=== PATIENT | male | born 1945 | race Caucasian/White ===

== ENCOUNTER 2016-10-26 12:14 | Day surgery (SDC) | payer MEDICARE ==
[~2016-10-26] VITALS: Ht 127 cm; Wt 115.0 kg
[~2016-10-26 12:14] MED LIST: BUPIVACAINE/PF 0.5% ONE; HEPARIN 1,000 UNITS/ML, 10ML ONE; PROTAMINE SULFATE 10 MG/ML, 5ML ONE; THROMBIN 5,000 UNIT VIAL TP ONE
[2016-10-26] MEDS ORDERED: LIDOCAINE 1%, 2ML ONE (13:18)
[2016-10-26 13:22] VITALS: BP 136/71
[2016-10-26] MEDS ORDERED: VITA0.8T2 PO (13:31)
[2016-10-26] MEDS ORDERED: LOSA25TA5 PO (13:33)
[2016-10-26] MEDS ORDERED: FURO-92 PO (13:33)
[2016-10-26] MEDS ORDERED: WARF1TAB7 PO (13:33)
[2016-10-26] MEDS ORDERED: ERGO500017 PO (13:33)
[2016-10-26] MEDS ORDERED: POTA10TA12 PO (13:33)
[2016-10-26] MEDS ORDERED: CINN500C2 PO (13:33)
[2016-10-26] MEDS ORDERED: HYDR-3138 PO (13:33)
[2016-10-26] MEDS ORDERED: ASPI-496 PO (13:33)
[2016-10-26] MEDS ORDERED: SODIUM CHLORIDE 0.9% 1,000 ML IV SCH (13:35)
[2016-10-26] MEDS ORDERED: EPHEDRINE 50 MG/ML, 1ML IVPush PRN (14:00)
[2016-10-26] MEDS ORDERED: LABETALOL 5MG/ML, 20ML IV PRN (14:00)
[2016-10-26] MEDS ORDERED: FENTANYL PF 100 MCG/2ML IV PRN (14:00)
[2016-10-26] MEDS ORDERED: OXYcodone 5 MG/5 ML ORAL.SOL UDC PO PRN (14:00)
[2016-10-26] MEDS ORDERED: ONDANSETRON 2MG/ML, 2ML IVPush PRN (14:00)
[2016-10-26] MEDS ORDERED: HYDROmorphone 1 MG/ML, 1ML IV PRN (14:00)
[2016-10-26] MEDS ORDERED: hydrALAzine 20 MG/ML, 1ML IV PRN (14:00)
[2016-10-26] MEDS ORDERED: LIDOCAINE 1%, 2ML SQ PRN (14:00)
[2016-10-26] MEDS ORDERED: METOPROLOL 1 MG/ML, 5ML IV PRN (14:00)
[2016-10-26] MEDS ORDERED: ALBUTEROL SULFATE 2.5 MG/3 ML NPPB PRN (14:00)
[2016-10-26] MEDS ORDERED: ACETAMINOPHEN 325 MG TABLET PO PRN (14:00)
[2016-10-26] MEDS ORDERED: CEFAZOLIN 1,000 MG ONE (14:08)
[2016-10-26] MEDS ORDERED: GLYCOPYRROLATE 0.2MG/1ML ONE (14:08)
[2016-10-26] MEDS ORDERED: NEOSTIGMINE 1 MG/ML, 10ML ONE (14:08)
[2016-10-26] MEDS ORDERED: ONDANSETRON 2MG/ML, 2ML ONE (14:08)
[2016-10-26] MEDS ORDERED: PROPOFOL 10 MG/ML, 20ML ONE (14:08)
[2016-10-26] MEDS ORDERED: ATROPINE 0.4 MG/ML, 1ML ONE (14:08)
[2016-10-26] MEDS ORDERED: EPINEPHRINE 1 MG/ML, 1ML ONE (14:08)
[2016-10-26] MEDS ORDERED: ROCURONIUM 10 MG/ML ONE (14:08)
[2016-10-26] MEDS ORDERED: FENTANYL PF 100 MCG/2ML ONE (14:28)
[2016-10-26] MEDS ORDERED: OXYcodone 5 MG/5 ML ORAL.SOL UDC ONE (16:50)
== END 2016-10-26 18:25 | disposition home or self-care (01) ==
LOC: OUT 12:14
PROVIDERS: ATTEND Surgery Vascular Surgery
DX: T82.49XA Other complication of vascular dialysis catheter, initial encounter (principal); I48.91 Unspecified atrial fibrillation; E11.22 Type 2 diabetes mellitus with diabetic chronic kidney disease; I13.11 Hypertensive heart and chronic kidney disease without heart failure, with stage 5 chronic kidney disease, or end stage renal disease; N18.6 End stage renal disease; Z99.2 Dependence on renal dialysis; Z87.891 Personal history of nicotine dependence; Z95.1 Presence of aortocoronary bypass graft; Z89.612 Acquired absence of left leg above knee; Z89.611 Acquired absence of right leg above knee; Y83.8 Other surgical procedures as the cause of abnormal reaction of the patient, or of later complication, without mention of misadventure at the time of the procedure
CPT/HCPCS: 36415; 36558; 36589; 36821; 77001; 80047; 85610; 85730; 93005; C1751; J0171; J0461; J0690; J1644; J2405; J2704; J2710; J2720; J3010; J3490; J7030